=== PATIENT | female | born 1995 | race Hispanic/Latino ===

== ENCOUNTER 2022-02-28 21:54 | Inpatient (IN) | payer OTHER ==
[~2022-02-28] VITALS: Ht 167.6 cm; Wt 98.3 kg
[2022-02-28 22:23] LABS: HEMATOCRIT 41.4 % (36-48); MEAN CORPUSCULAR HEMOGLOBIN 30.7 pg (27.0-33.0); MEAN CORPUSCULAR HGB CONC 34.3 g/dL (32.0-36.0); MEAN CORPUSCULAR VOLUME 89.4 fL (79-99); PLATELET COUNT (AUTO) 262 K/uL (130-400); RED BLOOD CELL COUNT(AUTO) 4.63 MIL/uL (4.00-5.50); RED CELL DISTRIBUTION WIDTH 12.6 % (11.0-15.5); WHITE BLOOD COUNT (AUTO) 10.6 K/uL (4.8-10.8)
[2022-02-28 22:39] LABS: CREATININE 0.7 mg/dL (0.5-1.5); POTASSIUM 4.2 mmol/L (3.5-5.1)
[2022-02-28 22:44] LABS: ALBUMIN 4.3 g/dL (3.5-5.0); TOTAL PROTEIN, SERUM 8.7 g/dL (6.0-8.3)
[2022-02-28 22:46] LABS: APPEARANCE,URINE CLEAR (CLEAR); BILIRUBIN,URINE NEGATIVE (NEGATIVE); COLOR,URINE YELLOW (YELLOW); GLUCOSE, URINE (UA) NEGATIVE (NEGATIVE); KETONES,URINE 15 mg/dL (NEGATIVE); LEUKOCYTE ESTERASE ,URINE TRACE (NEGATIVE); NITRATE,URINE POSITIVE (NEGATIVE); OCCULT BLOOD,URINE NEGATIVE (NEGATIVE); PROTEIN,URINE NEGATIVE (NEGATIVE); UROBILINOGEN,URINE 0.2 mg/dL (0.2-1.0)
[2022-02-28 22:49] LABS: BASOPHILS % (AUTO) 0.2 % (0.0-5.0); EOSINOPHILS % (AUTO) 0.8 % (0.0-8.0); LYMPHOCYTES % (AUTO) 25.8 % (21.0-51.0); MONOCYTES % (AUTO) 6.4 % (3.0-13.0); NEUTROPHILS % (AUTO) 66.5 % (40.0-77.0)
[2022-02-28 22:56] LABS: HCG,QUALITATIVE URINE NEGATIVE (NEGATIVE)
[2022-02-28 23:27] LABS: BACTERIA,URINE Moderate /HPF (None Seen); RBC,URINE None Seen /HPF (0-1); SQUAMOUS EPITHELIAL CELL,UR Many /HPF (0-2)
[2022-02-28 23:35] LABS: AMPHET/METH SCREEN,URINE NEGATIVE (NEGATIVE); BARBITURATE SCREEN, URINE NEGATIVE (NEGATIVE); BENZODIAZEPINES SCREEN,URINE NEGATIVE (NEGATIVE); CANNABINOID SCREEN,URINE NEGATIVE (NEGATIVE); COCAINE SCREEN,URINE NEGATIVE (NEGATIVE); PHENCYCLIDINE SCREEN,URINE NEGATIVE (NEGATIVE)
[2022-03-01] MEDS ORDERED: IOHEXOL 350 MG/ML 100ML INFUS..BTL IV ONE (01:27)
[2022-03-01] MEDS ORDERED: LEVETIRACETAM 500 MG/5 ML SD VIAL IV SCH (03:00)
[2022-03-01] MEDS ORDERED: ONDANSETRON 4MG INJ IV PRN (06:30)
[2022-03-01] MEDS ORDERED: MAG/ALUM/SIMETH 30 ML UDCUP PO PRN (06:30)
[2022-03-01] MEDS ORDERED: GUAIFENESIN-DM 200/20 MG 10 ML PO PRN (06:30)
[2022-03-01] MEDS ORDERED: ACETAMINOPHEN WITH CODEINE 1 TAB TAB PO PRN (06:30)
[2022-03-01] MEDS ORDERED: DIPHENHYDRAMINE HCL 25 MG CAPSULE PO PRN (06:30)
[2022-03-01] MEDS ORDERED: ACETAMINOPHEN 325 MG TAB PO PRN (06:30)
[2022-03-01] MEDS ORDERED: NITROGLYCERIN 0.4 MG SL TAB SL PRN (06:30)
[2022-03-01] MEDS ORDERED: LACTULOSE 20 GM/30 ML UDCUP PO PRN (06:30)
[2022-03-01 06:43] LABS: HEMOGLOBIN A1C 5.1 % (4.0-6.0)
[2022-03-01] MEDS: CEFTRIAXONE 1G VIAL IVP SCH (06:58)
[2022-03-01] MEDS ORDERED: COMPOUND IV MISC 1 EACH IVSOLN MISC PRN (07:00)
[2022-03-01 08:16] LABS: THYROID STIMULATING HORMONE 0.01 uIU/mL (0.36-3.74)
[2022-03-01] MEDS: ASPIRIN 81MG CHEW TAB PO SCH (09:10)
[2022-03-01] MEDS: FAMOTIDINE 20MG VIAL IV SCH ×2 (09:10→19:55)
[2022-03-01] MEDS: LEVETIRACETAM 500 MG in 0.9%NACL 100ML 100 ML IV SCH (09:10)
[2022-03-01 15:57] VITALS: BP 102/66
[2022-03-01 20:00] VITALS: BP 94/58
[2022-03-02] VITALS: BP 104/58
[2022-03-02 04:00] VITALS: BP 103/59
[2022-03-02] MEDS: CEFTRIAXONE 1G VIAL IVP SCH (05:35)
[2022-03-02 07:38] VITALS: BP 102/67
[2022-03-02] MEDS: ASPIRIN 81MG CHEW TAB PO SCH (08:35)
[2022-03-02] MEDS: FAMOTIDINE 20MG VIAL IV SCH (08:35)
[2022-03-02] MEDS: LEVETIRACETAM 500 MG in 0.9%NACL 100ML 100 ML IV SCH (08:37)
[2022-03-02 08:53] LABS: HEMATOCRIT 40.4 % (36-48); MEAN CORPUSCULAR HEMOGLOBIN 30.3 pg (27.0-33.0); MEAN CORPUSCULAR HGB CONC 34.2 g/dL (32.0-36.0); MEAN CORPUSCULAR VOLUME 88.8 fL (79-99); RED BLOOD CELL COUNT(AUTO) 4.55 MIL/uL (4.00-5.50); RED CELL DISTRIBUTION WIDTH 12.6 % (11.0-15.5); WHITE BLOOD COUNT (AUTO) 7.3 K/uL (4.8-10.8)
[2022-03-02 09:01] LABS: CREATININE 0.9 mg/dL (0.5-1.5); POTASSIUM 3.7 mmol/L (3.5-5.1)
[2022-03-02 11:21] VITALS: BP 102/70
[2022-03-02] MEDS ORDERED: LEVE-43 PO (14:40)
[2022-03-02 15:38] VITALS: BP 104/67
[2022-03-02] MEDS ORDERED: LEVETIRACETAM 500 MG in 0.9%NACL 100ML 100 ML IV SCH (21:00)
== END 2022-03-02 19:45 | disposition home or self-care (01) | DRG 101 ==
LOC: EDH 21:54 → EDBD 21:55 → EDHIP 21:55 → 4CH 03-01 14:45
PROVIDERS: ADMIT Internal Medicine; ATTEND Internal Medicine
DX: R56.9 Unspecified convulsions (principal); N39.0 Urinary tract infection, site not specified; E66.9 Obesity, unspecified; Z68.35 Body mass index [BMI] 35.0-35.9, adult
CPT/HCPCS: 36415; 70470; 70544; 70547; 70551; 80048; 80053; 80061; 80305; 81001; 81025; 82140; 82607; 83036; 83605; 84145; 84443; 85025; 85027; 87088; 92522; 92610; 93306; 93356; 96374; G0378; J0696; J1953; J3490; Q9967

== ENCOUNTER 2022-03-21 22:07 | Emergency (ER) | payer OTHER ==
[~2022-03-21 22:07] MED LIST: LEVE-43 PO
[2022-03-21 22:51] LABS: BASOPHILS % (AUTO) 0.2 % (0.0-5.0); EOSINOPHILS % (AUTO) 1.1 % (0.0-8.0); HEMATOCRIT 39.5 % (36-48); LYMPHOCYTES % (AUTO) 23.1 % (21.0-51.0); MEAN CORPUSCULAR HEMOGLOBIN 30.4 pg (27.0-33.0); MEAN CORPUSCULAR HGB CONC 34.4 g/dL (32.0-36.0); MEAN CORPUSCULAR VOLUME 88.4 fL (79-99); MONOCYTES % (AUTO) 6.9 % (3.0-13.0); NEUTROPHILS % (AUTO) 68.2 % (40.0-77.0); PLATELET COUNT (AUTO) 244 K/uL (130-400); RED BLOOD CELL COUNT(AUTO) 4.47 MIL/uL (4.00-5.50); RED CELL DISTRIBUTION WIDTH 12.5 % (11.0-15.5); WHITE BLOOD COUNT (AUTO) 8.5 K/uL (4.8-10.8)
[2022-03-21] MEDS ORDERED: KETOROLAC 15MG/ML VIAL (15MG/ML) IV ONE (23:00)
[2022-03-21] MEDS ORDERED: 0.9%NACL 1000ML 1,000 ML IV ONE (23:00)
[2022-03-21] MEDS ORDERED: DiphenhydrAMINE HCL 50 MG/ML VIAL IV ONE (23:00)
[2022-03-21] MEDS ORDERED: PROCHLORPERAZINE 10MG/2ML INJ IV ONE (23:00)
[2022-03-21 23:05] LABS: CREATININE 0.8 mg/dL (0.5-1.5); POTASSIUM 3.5 mmol/L (3.5-5.1)
[2022-03-21 23:10] LABS: ALBUMIN 3.7 g/dL (3.5-5.0); TOTAL PROTEIN, SERUM 7.6 g/dL (6.0-8.3)
[2022-03-21 23:28] LABS: APPEARANCE,URINE CLEAR (CLEAR); BILIRUBIN,URINE NEGATIVE (NEGATIVE); COLOR,URINE YELLOW (YELLOW); GLUCOSE, URINE (UA) NEGATIVE (NEGATIVE); KETONES,URINE NEGATIVE (NEGATIVE); LEUKOCYTE ESTERASE ,URINE NEGATIVE Leu/uL (NEGATIVE); NITRATE,URINE NEGATIVE (NEGATIVE); OCCULT BLOOD,URINE NEGATIVE (NEGATIVE); PH,URINE 5.5 (5.0-8.0); PROTEIN,URINE 20 mg/dL (NEGATIVE); UROBILINOGEN,URINE 0.2 mg/dL (0.2-1.0)
[2022-03-21 23:42] LABS: HCG,QUALITATIVE URINE NEGATIVE (NEGATIVE); MUCUS,URINE FEW LPF (None Seen); SQUAMOUS EPITHELIAL CELL,UR MOD /HPF (0-2)
[2022-03-21 23:43] LABS: BACTERIA,URINE None Seen /HPF (None Seen)
[2022-03-22 00:25] VITALS: BP 128/53
== END 2022-03-22 00:28 | disposition home or self-care (01) ==
LOC: EDH 22:07
DX: R51.9 Headache, unspecified (principal); Z79.899 Other long term (current) drug therapy
CPT/HCPCS: 99284; 96374; 96375; 96361; 80053; 85025; 81001; 81025; 36415; 80177; J1200; J7030; J0780; J1885

== ENCOUNTER 2022-04-02 23:58 | Emergency (ER) | payer SELFPAY ==
[~2022-04-02] VITALS: Ht 172.7 cm; Wt 81.6 kg
[2022-04-03] MEDS ORDERED: ACETAMINOPHEN 500 MG TABLET ONE (00:16)
[2022-04-03 00:28] LABS: APPEARANCE,URINE CLEAR (CLEAR); BILIRUBIN,URINE NEGATIVE (NEGATIVE); COLOR,URINE LIGHT-YELLOW (YELLOW); GLUCOSE, URINE (UA) NEGATIVE (NEGATIVE); KETONES,URINE 10 mg/dL (NEGATIVE); LEUKOCYTE ESTERASE ,URINE 75 Leu/uL (NEGATIVE); NITRATE,URINE NEGATIVE (NEGATIVE); OCCULT BLOOD,URINE NEGATIVE (NEGATIVE); PROTEIN,URINE 20 mg/dL (NEGATIVE); UROBILINOGEN,URINE 0.2 mg/dL (0.2-1.0)
[2022-04-03] MEDS ORDERED: ACETAMINOPHEN 500 MG TABLET PO ONE (00:30)
[2022-04-03 00:36] LABS: MUCUS,URINE RARE LPF (None Seen)
[2022-04-03 00:42] LABS: CREATININE 0.9 mg/dL (0.5-1.5); POTASSIUM 3.5 mmol/L (3.5-5.1)
[2022-04-03 00:52] LABS: BASOPHILS % (AUTO) 0.3 % (0.0-5.0); EOSINOPHILS % (AUTO) 0.7 % (0.0-8.0); HEMATOCRIT 35.6 % (36-48); MEAN CORPUSCULAR HEMOGLOBIN 31.1 pg (27.0-33.0); MEAN CORPUSCULAR HGB CONC 35.4 g/dL (32.0-36.0); MEAN CORPUSCULAR VOLUME 87.9 fL (79-99); MONOCYTES % (AUTO) 5.5 % (3.0-13.0); NEUTROPHILS % (AUTO) 72.9 % (40.0-77.0); PLATELET COUNT (AUTO) 268 K/uL (130-400); RED BLOOD CELL COUNT(AUTO) 4.05 MIL/uL (4.00-5.50); RED CELL DISTRIBUTION WIDTH 12.5 % (11.0-15.5); WHITE BLOOD COUNT (AUTO) 11.7 K/uL (4.8-10.8)
[2022-04-03] MEDS ORDERED: MACR100 PO (01:43)
[2022-04-03 01:44] VITALS: BP 107/63
[2022-04-03] MEDS ORDERED: NITROFURANTOIN MONOHYD/M-CRYST 100 MG CAPSULE PO ONE (02:00)
== END 2022-04-03 01:56 | disposition home or self-care (01) ==
LOC: EDBD 23:58 → EDH 23:58
DX: N39.0 Urinary tract infection, site not specified (principal); R56.9 Unspecified convulsions
CPT/HCPCS: 36415; 70450; 80048; 80177; 81001; 84702; 85025; 87088

== ENCOUNTER 2022-04-06 23:52 | Emergency (ER) | payer OTHER ==
[~2022-04-06] VITALS: Ht 162.6 cm; Wt 95.3 kg
[~2022-04-06 23:52] MED LIST changes: +MACR100 PO
[2022-04-07 00:19] LABS: BASOPHILS % (AUTO) 0.2 % (0.0-5.0); EOSINOPHILS % (AUTO) 0.7 % (0.0-8.0); HEMATOCRIT 38.7 % (36-48); MEAN CORPUSCULAR HGB CONC 34.9 g/dL (32.0-36.0); MONOCYTES % (AUTO) 6.2 % (3.0-13.0); NEUTROPHILS % (AUTO) 73.5 % (40.0-77.0); PLATELET COUNT (AUTO) 270 K/uL (130-400); RED CELL DISTRIBUTION WIDTH 12.4 % (11.0-15.5); WHITE BLOOD COUNT (AUTO) 10.9 K/uL (4.8-10.8)
[2022-04-07 00:21] LABS: APPEARANCE,URINE CLOUDY (CLEAR); BILIRUBIN,URINE NEGATIVE (NEGATIVE); COLOR,URINE YELLOW (YELLOW); GLUCOSE, URINE (UA) NEGATIVE (NEGATIVE); KETONES,URINE NEGATIVE (NEGATIVE); LEUKOCYTE ESTERASE ,URINE 75 Leu/uL (NEGATIVE); NITRATE,URINE NEGATIVE (NEGATIVE); PROTEIN,URINE 10 mg/dL (NEGATIVE); UROBILINOGEN,URINE 0.2 mg/dL (0.2-1.0)
[2022-04-07 00:23] LABS: HCG,QUALITATIVE URINE POSITIVE (NEGATIVE)
[2022-04-07 00:25] LABS: AMPHET/METH SCREEN,URINE NEGATIVE (NEGATIVE); BACTERIA,URINE RARE /HPF (None Seen); BARBITURATE SCREEN, URINE NEGATIVE (NEGATIVE); BENZODIAZEPINES SCREEN,URINE NEGATIVE (NEGATIVE); CANNABINOID SCREEN,URINE NEGATIVE (NEGATIVE); COCAINE SCREEN,URINE NEGATIVE (NEGATIVE); MUCUS,URINE RARE LPF (None Seen); PHENCYCLIDINE SCREEN,URINE NEGATIVE (NEGATIVE); SQUAMOUS EPITHELIAL CELL,UR MANY /HPF (0-2)
[2022-04-07 00:32] LABS: CARBON DIOXIDE 25 mmol/L (21-32); CHLORIDE 99 mmol/L (101-111); CREATININE 0.7 mg/dL (0.5-1.5); GLOMERULAR FILTR. RATE CALC 107 mL/min (>60); GLUCOSE,RANDOM 130 mg/dL (70-105); POTASSIUM 3.6 mmol/L (3.5-5.1); SODIUM SERUM 134 mmol/L (136-145); UREA NITROGEN, BLOOD 14 mg/dL (7-18)
[2022-04-07 00:36] LABS: ALANINE AMINOTRANSFERASE 20 U/L (12-78); ALBUMIN 3.9 g/dL (3.5-5.0); ALCOHOL, BLOOD < 3 mg/dL (0-10); ASPARTATE AMINOTRANSFERASE 14 U/L (10-37); TOTAL PROTEIN, SERUM 8.4 g/dL (6.0-8.3)
[2022-04-07 00:42] LABS: ACETAMINOPHEN < 1 mcg/mL (10-30); SALICYLATE < 2.8 mg/dL (2.8-20.0)
[2022-04-07 04:51] VITALS: BP 118/64
== END 2022-04-07 06:58 | disposition home or self-care (01) ==
LOC: EDH 23:52
DX: R45.851 Suicidal ideations (principal); F32.A Depression, unspecified; Z20.822 Contact with and (suspected) exposure to COVID-19
CPT/HCPCS: 99285; 87635; 80053; 80305; 84702; 85025; 87088; 81025; 36415 ×2; 81001; G0481; C9803

== ENCOUNTER 2022-11-02 23:35 | Inpatient (IN) | payer OTHER ==
[~2022-11-02] VITALS: Ht 160 cm; Wt 95.3 kg
[2022-11-03 00:02] LABS: BASOPHILS % (AUTO) 0.2 % (0.0-5.0); EOSINOPHILS % (AUTO) 0.7 % (0.0-8.0); HEMATOCRIT 33.8 % (36-48); MEAN CORPUSCULAR HEMOGLOBIN 31.1 pg (27.0-33.0); MEAN CORPUSCULAR HGB CONC 33.7 g/dL (32.0-36.0); MEAN CORPUSCULAR VOLUME 92.3 fL (79-99); NEUTROPHILS % (AUTO) 72.7 % (40.0-77.0); PLATELET COUNT (AUTO) 211 K/uL (130-400); RED BLOOD CELL COUNT(AUTO) 3.66 MIL/uL (4.00-5.50); RED CELL DISTRIBUTION WIDTH 12.4 % (11.0-15.5); WHITE BLOOD COUNT (AUTO) 9.1 K/uL (4.8-10.8)
[2022-11-03 00:17] LABS: APPEARANCE,URINE CLOUDY (CLEAR); BILIRUBIN,URINE 0.5 mg/dL (NEGATIVE); COLOR,URINE YELLOW (YELLOW); GLUCOSE, URINE (UA) NEGATIVE (NEGATIVE); KETONES,URINE 150 mg/dL (NEGATIVE); LEUKOCYTE ESTERASE ,URINE 500 Leu/uL (NEGATIVE); NITRATE,URINE NEGATIVE (NEGATIVE); OCCULT BLOOD,URINE NEGATIVE (NEGATIVE); PH,URINE 6.5 (5.0-8.0); PROTEIN,URINE 30 mg/dL (NEGATIVE); UROBILINOGEN,URINE 6 mg/dL (0.2-1.0)
[2022-11-03 00:20] LABS: CARBON DIOXIDE 27 mmol/L (21-32); CHLORIDE 103 mmol/L (101-111); CREATININE 0.7 mg/dL (0.5-1.5); GLOMERULAR FILTR. RATE CALC 121 mL/min (>90); GLUCOSE,RANDOM 69 mg/dL (70-105); POTASSIUM 3.4 mmol/L (3.5-5.1); SODIUM SERUM 139 mmol/L (136-145); UREA NITROGEN, BLOOD 6 mg/dL (7-18)
[2022-11-03 00:37] LABS: MUCUS,URINE FEW LPF (None Seen); SQUAMOUS EPITHELIAL CELL,UR MANY /HPF (0-2); WBC,URINE 51-100 /HPF (0-1)
[2022-11-03 00:41] LABS: HCG,QUALITATIVE URINE POSITIVE (NEGATIVE)
[2022-11-03 00:45] LABS: ALANINE AMINOTRANSFERASE 317 U/L (12-78); ALBUMIN 2.5 g/dL (3.5-5.0); ASPARTATE AMINOTRANSFERASE 155 U/L (10-37); CREATINE KINASE, TOTAL 37 U/L (21-232); HCG,QUANTITATIVE 36257 mIU/mL (0-5); TOTAL PROTEIN, SERUM 6.8 g/dL (6.0-8.3)
[2022-11-03 00:46] LABS: ACETAMINOPHEN < 1 mcg/mL (10-30); SALICYLATE < 2.8 mg/dL (2.8-20.0)
[2022-11-03 02:22] LABS: INR 0.93 (0.85-1.15); PROTHROMBIN TIME 9.5 SEC (9.6-11.6)
[2022-11-03 02:24] LABS: PARTIAL THROMBOPLASTIN TIME 24.8 SEC (26.3-35.5)
[2022-11-03] MEDS ORDERED: NOREPINEPHRIN 4MG/NS 250ML 250 ML IV SCH (02:30)
[2022-11-03] MEDS ORDERED: ONDANSETRON 4MG INJ IV PRN (02:30)
[2022-11-03] MEDS ORDERED: 0.9%NACL 1000ML 2,500 ML IV ONE (02:30)
[2022-11-03] MEDS ORDERED: LACTULOSE 20 GM/30 ML UDCUP PO PRN (02:30)
[2022-11-03] MEDS ORDERED: ACETAMINOPHEN 325 MG TAB PO PRN ×2 (02:30)
[2022-11-03 02:35] LABS: AMPHET/METH SCREEN,URINE NEGATIVE (NEGATIVE); BARBITURATE SCREEN, URINE NEGATIVE (NEGATIVE); BENZODIAZEPINES SCREEN,URINE NEGATIVE (NEGATIVE); CANNABINOID SCREEN,URINE NEGATIVE (NEGATIVE); COCAINE SCREEN,URINE NEGATIVE (NEGATIVE); OPIATE SCREEN,URINE NEGATIVE (NEGATIVE); PHENCYCLIDINE SCREEN,URINE NEGATIVE (NEGATIVE)
[2022-11-03] MEDS: 0.9%NACL 1000ML 1,000 ML IV SCH ×2 (04:46→12:18)
[2022-11-03] MEDS: CEFTRIAXONE 1G VIAL IVPB SCH (04:46)
[2022-11-03] MEDS ORDERED: MAGNESIUM 2GM PREMIX 50ML 50 ML IV PRN (08:30)
[2022-11-03] MEDS ORDERED: POTASSIUM CHLORIDE 10% ELIXIR 20 MEQ/15 ML UDCUP PO PRN (08:30)
[2022-11-03] MEDS ORDERED: POTASSIUM CHLORIDE 20MEQ/100ML 100 ML IV PRN (08:30)
[2022-11-03] MEDS ORDERED: KCL 20 MEQ ERTAB PO PRN (08:30)
[2022-11-03 08:51] LABS: HEMATOCRIT 30.5 % (36-48); MEAN CORPUSCULAR HEMOGLOBIN 31.6 pg (27.0-33.0); MEAN CORPUSCULAR HGB CONC 34.1 g/dL (32.0-36.0); MEAN CORPUSCULAR VOLUME 92.7 fL (79-99); RED BLOOD CELL COUNT(AUTO) 3.29 MIL/uL (4.00-5.50); RED CELL DISTRIBUTION WIDTH 12.7 % (11.0-15.5); WHITE BLOOD COUNT (AUTO) 6.6 K/uL (4.8-10.8)
[2022-11-03] MEDS: FAMOTIDINE 20MG TAB PO SCH ×2 (08:55→21:53)
[2022-11-03] MEDS: LEVETIRACETAM 500 MG TABLET PO SCH ×2 (08:55→21:53)
[2022-11-03 08:59] LABS: CREATININE 0.5 mg/dL (0.5-1.5); POTASSIUM 4.1 mmol/L (3.5-5.1)
[2022-11-03 09:03] LABS: MAGNESIUM 1.7 mg/dL (1.80-2.40); TOTAL PROTEIN, SERUM 5.8 g/dL (6.0-8.3)
[2022-11-03 17:25] VITALS: BP 106/69
[2022-11-03] MEDS ORDERED: PREN1TAB80 PO (18:58)
[2022-11-03 19:05] VITALS: BP 91/64
[2022-11-03 23:20] VITALS: BP 92/54
[2022-11-04] MEDS: 0.9%NACL 1000ML 1,000 ML IV SCH ×3 (00:45→20:50)
[2022-11-04 03:05] VITALS: BP 96/71
[2022-11-04] MEDS: CEFTRIAXONE 1G VIAL IVPB SCH (03:30)
[2022-11-04 06:45] LABS: HEMATOCRIT 31.5 % (36-48); MEAN CORPUSCULAR VOLUME 93.8 fL (79-99); RED BLOOD CELL COUNT(AUTO) 3.36 MIL/uL (4.00-5.50); RED CELL DISTRIBUTION WIDTH 12.5 % (11.0-15.5); WHITE BLOOD COUNT (AUTO) 6.4 K/uL (4.8-10.8)
[2022-11-04 07:01] LABS: ALBUMIN 2.1 g/dL (3.5-5.0); CREATININE 0.5 mg/dL (0.5-1.5); POTASSIUM 4.2 mmol/L (3.5-5.1)
[2022-11-04 07:44] VITALS: BP 96/61
[2022-11-04] MEDS: LEVETIRACETAM 500 MG TABLET PO SCH ×2 (08:16→20:37)
[2022-11-04] MEDS: FAMOTIDINE 20MG TAB PO SCH ×2 (08:16→20:37)
[2022-11-04 11:30] VITALS: BP 107/64
[2022-11-04 15:30] VITALS: BP 89/57
[2022-11-04 19:30] VITALS: BP 93/57
[2022-11-04 23:00] VITALS: BP 96/58
[2022-11-05] VITALS (7 sets, daily range): BP systolic 85–106; BP diastolic 53–76
[2022-11-05] MEDS: CEFTRIAXONE 1G VIAL IVPB SCH (04:08)
[2022-11-05] MEDS: 0.9%NACL 1000ML 1,000 ML IV SCH ×2 (06:32→15:56)
[2022-11-05 06:50] LABS: HEMATOCRIT 29.5 % (36-48); MEAN CORPUSCULAR HGB CONC 33.9 g/dL (32.0-36.0); MEAN CORPUSCULAR VOLUME 91.3 fL (79-99); RED BLOOD CELL COUNT(AUTO) 3.23 MIL/uL (4.00-5.50); RED CELL DISTRIBUTION WIDTH 12.3 % (11.0-15.5); WHITE BLOOD COUNT (AUTO) 5.4 K/uL (4.8-10.8)
[2022-11-05 07:03] LABS: % IRON SATURATION 26.7 % (22-44)
[2022-11-05 07:05] LABS: CREATININE 0.5 mg/dL (0.5-1.5); MAGNESIUM 1.7 mg/dL (1.80-2.40); POTASSIUM 3.5 mmol/L (3.5-5.1); TOTAL PROTEIN, SERUM 5.5 g/dL (6.0-8.3)
[2022-11-05] MEDS: PRENATAL VITAMIN RX TABLET PO SCH (08:36)
[2022-11-05] MEDS: FAMOTIDINE 20MG TAB PO SCH ×2 (08:36→21:23)
[2022-11-05] MEDS: GUAIFENESIN-DM 200/20 MG 10 ML PO PRN ×3 (08:36→23:13)
[2022-11-05] MEDS: LEVETIRACETAM 500 MG TABLET PO SCH ×2 (08:37→21:23)
[2022-11-06] MEDS: 0.9%NACL 1000ML 1,000 ML IV SCH ×2 (01:50→12:08)
[2022-11-06] MEDS: CEFTRIAXONE 1G VIAL IVPB SCH (03:27)
[2022-11-06 03:30] VITALS: BP 96/64
[2022-11-06] MEDS: GUAIFENESIN-DM 200/20 MG 10 ML PO PRN ×2 (06:27→13:28)
[2022-11-06 07:30] VITALS: BP 108/63
[2022-11-06] MEDS: LEVETIRACETAM 500 MG TABLET PO SCH (08:20)
[2022-11-06] MEDS: PRENATAL VITAMIN RX TABLET PO SCH (08:20)
[2022-11-06] MEDS: FAMOTIDINE 20MG TAB PO SCH (08:20)
[2022-11-06 11:22] VITALS: BP 88/61
[2022-11-06 16:00] VITALS: BP 94/55
[2022-11-06] MEDS ORDERED: LEVE500T19 PO (16:59)
[2022-11-06] MEDS ORDERED: HYDR-3421 PO (17:00)
== END 2022-11-06 17:40 | disposition home or self-care (01) | DRG 833 ==
LOC: EDH 23:35 → EDHIP 23:36 → WSH 11-03 17:15
PROVIDERS: ADMIT Hospitalist; ATTEND Hospitalist
DX: O23.43 Unspecified infection of urinary tract in pregnancy, third trimester (principal); O25.13 Malnutrition in pregnancy, third trimester; Z20.822 Contact with and (suspected) exposure to COVID-19; O99.343 Other mental disorders complicating pregnancy, third trimester; O99.013 Anemia complicating pregnancy, third trimester; O99.213 Obesity complicating pregnancy, third trimester; Z3A.34 34 weeks gestation of pregnancy
CPT/HCPCS: 36415; 76805; 80053; 80177; 80305; 81001; 81025; 82550; 83540; 83550; 83605; 83735; 84484; 84702; 85025; 85027; 85610; 85730; 87040; 87088; 87635; 93005; C9803; G0378; G0481; J0696; J3475; J7030

== ENCOUNTER 2023-02-13 20:36 | Emergency (ER) | payer OTHER ==
[~2023-02-13] VITALS: Ht 170.2 cm; Wt 87.5 kg
[~2023-02-13 20:36] MED LIST changes: +HYDR-3421 PO; -LEVE-43 PO; +LEVE500T19 PO; -MACR100 PO; +PREN1TAB80 PO
[2023-02-13 21:46] LABS: BASOPHILS # (AUTO) 0.01 K/uL (0.00-0.20); BASOPHILS % (AUTO) 0.1 % (0.0-5.0); EOSINOPHILS # (AUTO) 0.07 K/uL (0.00-0.70); EOSINOPHILS % (AUTO) 0.9 % (0.0-8.0); HEMATOCRIT 37.1 % (36-48); IMMATURE GRANULOCYTE ABSOLUTE 0.03 K/uL (0-1); LYMPHOCYTES # (AUTO) 1.8 K/uL (1.0-4.8); LYMPHOCYTES % (AUTO) 24.2 % (21.0-51.0); MEAN CORPUSCULAR HEMOGLOBIN 28.6 pg (27.0-33.0); MEAN CORPUSCULAR HGB CONC 33.2 g/dL (32.0-36.0); MEAN CORPUSCULAR VOLUME 86.3 fL (79-99); MONOCYTES # (AUTO) 0.4 K/uL (0.1-1.0); MONOCYTES % (AUTO) 5.5 % (3.0-13.0); NEUTROPHILS # (AUTO) 5.1 K/uL (1.8-7.7); NEUTROPHILS % (AUTO) 68.9 % (40.0-77.0); PLATELET COUNT (AUTO) 266 K/uL (130-400); RED CELL DISTRIBUTION WIDTH 12.6 % (11.0-15.5); WHITE BLOOD COUNT (AUTO) 7.5 K/uL (4.8-10.8)
[2023-02-13] MEDS ORDERED: CHARCOAL/SORBITOL 50 GM/240 ML SUSP PO SCH ×2 (22:00→23:00)
[2023-02-13 22:02] LABS: CARBON DIOXIDE 26 mmol/L (21-32); CHLORIDE 105 mmol/L (101-111); CREATININE 0.7 mg/dL (0.5-1.5); GLOMERULAR FILTR. RATE CALC 121 mL/min (>90); GLUCOSE,RANDOM 110 mg/dL (70-105); SODIUM SERUM 141 mmol/L (136-145); UREA NITROGEN, BLOOD 14 mg/dL (7-18)
[2023-02-13 22:06] LABS: ALANINE AMINOTRANSFERASE 29 U/L (12-78); ALBUMIN 3.8 g/dL (3.5-5.0); ALCOHOL, BLOOD < 3 mg/dL (0-10); ASPARTATE AMINOTRANSFERASE 21 U/L (10-37); BILIRUBIN,TOTAL 0.3 mg/dL (0.2-1.0); CREATINE KINASE, TOTAL 263 U/L (21-232); TOTAL PROTEIN, SERUM 7.8 g/dL (6.0-8.3)
[2023-02-13 22:07] LABS: ACETAMINOPHEN < 1 mcg/mL (10-30); SALICYLATE < 2.8 mg/dL (2.8-20.0)
[2023-02-13 22:19] LABS: SARS-CoV-2, RNA, NAAT NEGATIVE SARS CoV-2 (NEGATIVE)
[2023-02-13 22:50] LABS: APPEARANCE,URINE CLOUDY (CLEAR); BILIRUBIN,URINE NEGATIVE (NEGATIVE); COLOR,URINE LIGHT-YELLOW (YELLOW); GLUCOSE, URINE (UA) NEGATIVE (NEGATIVE); KETONES,URINE NEGATIVE (NEGATIVE); LEUKOCYTE ESTERASE ,URINE 250 Leu/uL (NEGATIVE); NITRATE,URINE NEGATIVE (NEGATIVE); OCCULT BLOOD,URINE NEGATIVE (NEGATIVE); PROTEIN,URINE NEGATIVE (NEGATIVE); UROBILINOGEN,URINE 0.2 mg/dL (0.2-1.0)
[2023-02-13 22:52] LABS: ADD UA MICROSCOPIC YES
[2023-02-13 22:57] LABS: AMPHET/METH SCREEN,URINE NEGATIVE (NEGATIVE); BARBITURATE SCREEN, URINE NEGATIVE (NEGATIVE); BENZODIAZEPINES SCREEN,URINE NEGATIVE (NEGATIVE); CANNABINOID SCREEN,URINE NEGATIVE (NEGATIVE); COCAINE SCREEN,URINE NEGATIVE (NEGATIVE); OPIATE SCREEN,URINE NEGATIVE (NEGATIVE); PHENCYCLIDINE SCREEN,URINE NEGATIVE (NEGATIVE)
[2023-02-13 23:04] LABS: MUCUS,URINE RARE LPF (None Seen); SQUAMOUS EPITHELIAL CELL,UR MANY /HPF (0-2)
[2023-02-14] MEDS ORDERED: PENICILLIN G BENZATHINE LA 1.2 MILUNITS/2 ML SYG IM ONE (02:30)
[2023-02-14 06:25] VITALS: BP 97/69; PULSE 58; RESP 18; O2SAT 99
== END 2023-02-14 08:22 ==
LOC: EDH 20:36
DX: T42.6X1A Poisoning by other antiepileptic and sedative-hypnotic drugs, accidental (unintentional), initial encounter (principal); F41.9 Anxiety disorder, unspecified; F32.A Depression, unspecified; Z79.899 Other long term (current) drug therapy; Z20.822 Contact with and (suspected) exposure to COVID-19; Y92.89 Other specified places as the place of occurrence of the external cause
CPT/HCPCS: 99285; 87635; 82550; 80053; 80305; 84703; 85025; 87088; 36415; 93005; 80177; 81001; 96372; C9803; J0561; G0481

== ENCOUNTER 2023-03-26 18:30 | Emergency (ER) | payer OTHER ==
[~2023-03-26] VITALS: Ht 167.6 cm; Wt 72.6 kg
[2023-03-26] MEDS ORDERED: 0.9%NACL 1000ML 1,000 ML IV SCH (20:30)
[2023-03-26 20:35] LABS: BASOPHILS # (AUTO) 0.01 K/uL (0.00-0.20); BASOPHILS % (AUTO) 0.1 % (0.0-5.0); EOSINOPHILS # (AUTO) 0.05 K/uL (0.00-0.70); EOSINOPHILS % (AUTO) 0.7 % (0.0-8.0); HEMATOCRIT 39.5 % (36-48); IMMATURE GRANULOCYTE ABSOLUTE 0.02 K/uL (0-1); LYMPHOCYTES # (AUTO) 1.9 K/uL (1.0-4.8); LYMPHOCYTES % (AUTO) 26.7 % (21.0-51.0); MEAN CORPUSCULAR HEMOGLOBIN 29.3 pg (27.0-33.0); MEAN CORPUSCULAR HGB CONC 33.4 g/dL (32.0-36.0); MEAN CORPUSCULAR VOLUME 87.6 fL (79-99); MONOCYTES # (AUTO) 0.5 K/uL (0.1-1.0); MONOCYTES % (AUTO) 7.7 % (3.0-13.0); NEUTROPHILS # (AUTO) 4.5 K/uL (1.8-7.7); NEUTROPHILS % (AUTO) 64.5 % (40.0-77.0); PLATELET COUNT (AUTO) 280 K/uL (130-400); RED BLOOD CELL COUNT(AUTO) 4.51 MIL/uL (4.00-5.50); RED CELL DISTRIBUTION WIDTH 12.9 % (11.0-15.5)
[2023-03-26 20:41] LABS: APPEARANCE,URINE CLEAR (CLEAR); BILIRUBIN,URINE NEGATIVE (NEGATIVE); COLOR,URINE YELLOW (YELLOW); GLUCOSE, URINE (UA) NEGATIVE (NEGATIVE); KETONES,URINE 10 mg/dL (NEGATIVE); LEUKOCYTE ESTERASE ,URINE 25 Leu/uL (NEGATIVE); NITRATE,URINE NEGATIVE (NEGATIVE); OCCULT BLOOD,URINE NEGATIVE (NEGATIVE); PROTEIN,URINE 10 mg/dL (NEGATIVE); UROBILINOGEN,URINE 0.2 mg/dL (0.2-1.0)
[2023-03-26 20:42] LABS: CREATININE 0.7 mg/dL (0.5-1.5); POTASSIUM 3.5 mmol/L (3.5-5.1)
[2023-03-26 20:46] LABS: ADD UA MICROSCOPIC YES
[2023-03-26 20:49] LABS: ALBUMIN 4.1 g/dL (3.5-5.0); BILIRUBIN,TOTAL 0.5 mg/dL (0.2-1.0); TOTAL PROTEIN, SERUM 7.8 g/dL (6.0-8.3)
[2023-03-26 20:51] LABS: INFLUENZA TYPE A Negative For Type A (NEGATIVE); INFLUENZA TYPE B Negative For Type B (NEGATIVE)
[2023-03-26 20:55] LABS: SARS-CoV-2, RNA, NAAT POSITIVE SARS CoV-2 (NEGATIVE)
[2023-03-26 21:02] LABS: BACTERIA,URINE RARE /HPF (None Seen); MUCUS,URINE FEW LPF (None Seen); RBC,URINE 0-1 /HPF (0-1); SQUAMOUS EPITHELIAL CELL,UR MOD /HPF (0-2)
[2023-03-26] MEDS ORDERED: IBUP-1493 PO (21:24)
[2023-03-26] MEDS ORDERED: PRED20TA3 PO (21:24)
[2023-03-26 21:30] VITALS: BP 121/54; PULSE 74; RESP 18; O2SAT 98
[2023-03-26 22:02] LABS: AMPHET/METH SCREEN,URINE NEGATIVE (NEGATIVE); BARBITURATE SCREEN, URINE NEGATIVE (NEGATIVE); BENZODIAZEPINES SCREEN,URINE NEGATIVE (NEGATIVE); CANNABINOID SCREEN,URINE NEGATIVE (NEGATIVE); COCAINE SCREEN,URINE NEGATIVE (NEGATIVE); OPIATE SCREEN,URINE NEGATIVE (NEGATIVE); PHENCYCLIDINE SCREEN,URINE NEGATIVE (NEGATIVE)
== END 2023-03-26 21:43 | disposition home or self-care (01) ==
LOC: EDH 18:30
DX: U07.1 COVID-19 (principal); I10 Essential (primary) hypertension; F41.9 Anxiety disorder, unspecified; F32.A Depression, unspecified; Z79.899 Other long term (current) drug therapy
CPT/HCPCS: 99284; 70450; 71045; 87635; 82550; 80053; 80305; 85025; 87804 ×2; 36415; 72125; 70486; 81001; C9803

== ENCOUNTER 2023-05-23 08:37 | Emergency (ER) | payer OTHER ==
[~2023-05-23] VITALS: Ht 160 cm; Wt 86.2 kg
[~2023-05-23 08:37] MED LIST changes: +IBUP-1493 PO; +PRED20TA3 PO
[2023-05-23 08:38] VITALS: BP 118/73; PULSE 77; RESP 18
[2023-05-23] MEDS ORDERED: SOLU-MEDROL 125MG VIAL IM ONE (09:30)
[2023-05-23] MEDS ORDERED: HYDR25CA PO (10:21)
[2023-05-23] MEDS ORDERED: METH4TAB3 PO (10:21)
== END 2023-05-23 10:32 | disposition home or self-care (01) ==
LOC: EDH 08:37
DX: M79.605 Pain in left leg (principal); M79.604 Pain in right leg; M79.641 Pain in right hand; M79.642 Pain in left hand; M79.18 Myalgia, other site; F41.9 Anxiety disorder, unspecified; R56.9 Unspecified convulsions; Z79.899 Other long term (current) drug therapy; Z98.890 Other specified postprocedural states
CPT/HCPCS: 99283; 96372; J2930

== ENCOUNTER 2023-09-20 20:29 | Emergency (ER) | payer OTHER ==
[~2023-09-20 20:29] MED LIST changes: +HYDR25CA PO; +METH4TAB3 PO
[2023-09-20 21:00] LABS: APPEARANCE,URINE CLEAR (CLEAR); BILIRUBIN,URINE NEGATIVE (NEGATIVE); COLOR,URINE LIGHT-YELLOW (YELLOW); GLUCOSE, URINE (UA) NEGATIVE (NEGATIVE); KETONES,URINE NEGATIVE (NEGATIVE); LEUKOCYTE ESTERASE ,URINE NEGATIVE Leu/uL (NEGATIVE); NITRATE,URINE NEGATIVE (NEGATIVE); OCCULT BLOOD,URINE NEGATIVE (NEGATIVE); PH,URINE 6.5 (5.0-8.0); PROTEIN,URINE NEGATIVE (NEGATIVE); UROBILINOGEN,URINE 0.2 mg/dL (0.2-1.0)
[2023-09-20 21:01] LABS: HCG,QUALITATIVE URINE NEGATIVE (NEGATIVE)
[2023-09-20 21:02] LABS: ADD UA MICROSCOPIC NO
[2023-09-20 21:39] LABS: BASOPHILS # (AUTO) 0.02 K/uL (0.00-0.20); BASOPHILS % (AUTO) 0.2 % (0.0-5.0); EOSINOPHILS # (AUTO) 0.11 K/uL (0.00-0.70); EOSINOPHILS % (AUTO) 1.3 % (0.0-8.0); HEMATOCRIT 39.5 % (36-48); IMMATURE GRANULOCYTE ABSOLUTE 0.02 K/uL (0-1); LYMPHOCYTES # (AUTO) 2.7 K/uL (1.0-4.8); LYMPHOCYTES % (AUTO) 30.3 % (21.0-51.0); MEAN CORPUSCULAR HEMOGLOBIN 29.9 pg (27.0-33.0); MEAN CORPUSCULAR HGB CONC 33.7 g/dL (32.0-36.0); MEAN CORPUSCULAR VOLUME 88.8 fL (79-99); MONOCYTES # (AUTO) 0.5 K/uL (0.1-1.0); MONOCYTES % (AUTO) 5.3 % (3.0-13.0); NEUTROPHILS # (AUTO) 5.5 K/uL (1.8-7.7); NEUTROPHILS % (AUTO) 62.7 % (40.0-77.0); PLATELET COUNT (AUTO) 252 K/uL (130-400); RED BLOOD CELL COUNT(AUTO) 4.45 MIL/uL (4.00-5.50); RED CELL DISTRIBUTION WIDTH 12.7 % (11.0-15.5); WHITE BLOOD COUNT (AUTO) 8.8 K/uL (4.8-10.8)
[2023-09-20 21:49] LABS: CREATININE 0.7 mg/dL (0.5-1.5); POTASSIUM 3.7 mmol/L (3.5-5.1)
[2023-09-20 21:54] LABS: ALBUMIN 3.5 g/dL (3.5-5.0); BILIRUBIN,TOTAL 0.2 mg/dL (0.2-1.0); TOTAL PROTEIN, SERUM 7.5 g/dL (6.0-8.3)
[2023-09-20] MEDS ORDERED: OMEP40CA21 PO (22:04)
[2023-09-20] MEDS: DICYCLOMINE HCL 10 MG/5 ML ML PO ONE (22:25)
[2023-09-20] MEDS: MAG/ALUM/SIMETH 30 ML UDCUP PO ONE (22:26)
[2023-09-20] MEDS: LIDOCAINE HCL 2% VISCOUS 15 ML UDCUP PO ONE (22:26)
[2023-09-20 22:32] VITALS: BP 136/84; PULSE 68; RESP 16; O2SAT 99
== END 2023-09-20 22:32 | disposition home or self-care (01) ==
LOC: EDH 20:29
DX: K29.00 Acute gastritis without bleeding (principal); Z79.899 Other long term (current) drug therapy; Z98.890 Other specified postprocedural states
CPT/HCPCS: 36415; 80053; 81003; 81025; 83690; 85025

== ENCOUNTER 2023-11-08 22:54 | Emergency (ER) | payer MEDICAID, OTHER ==
[~2023-11-08] VITALS: Ht 157.5 cm; Wt 59.0 kg
[~2023-11-08 22:54] MED LIST changes: +OMEP40CA21 PO
[2023-11-08] MEDS: CHARCOAL/AQUA 25GM/120ML PO ONE (23:00)
[2023-11-08 23:33] LABS: BASOPHILS # (AUTO) 0.02 K/uL (0.00-0.20); BASOPHILS % (AUTO) 0.2 % (0.0-5.0); EOSINOPHILS # (AUTO) 0.21 K/uL (0.00-0.70); EOSINOPHILS % (AUTO) 2.2 % (0.0-8.0); HEMATOCRIT 36.3 % (36-48); IMMATURE GRANULOCYTE ABSOLUTE 0.04 K/uL (0-1); LYMPHOCYTES # (AUTO) 2.6 K/uL (1.0-4.8); LYMPHOCYTES % (AUTO) 26.7 % (21.0-51.0); MEAN CORPUSCULAR HEMOGLOBIN 29.3 pg (27.0-33.0); MEAN CORPUSCULAR HGB CONC 34.4 g/dL (32.0-36.0); MONOCYTES # (AUTO) 0.5 K/uL (0.1-1.0); MONOCYTES % (AUTO) 5.5 % (3.0-13.0); NEUTROPHILS # (AUTO) 6.2 K/uL (1.8-7.7); PLATELET COUNT (AUTO) 259 K/uL (130-400); RED BLOOD CELL COUNT(AUTO) 4.27 MIL/uL (4.00-5.50); RED CELL DISTRIBUTION WIDTH 12.9 % (11.0-15.5); WHITE BLOOD COUNT (AUTO) 9.6 K/uL (4.8-10.8)
[2023-11-08 23:43] LABS: CARBON DIOXIDE 25 mmol/L (21-32); CHLORIDE 102 mmol/L (101-111); CREATININE 0.5 mg/dL (0.5-1.0); GLOMERULAR FILTR. RATE CALC 131 mL/min (>90); GLUCOSE,RANDOM 108 mg/dL (70-105); POTASSIUM 3.5 mmol/L (3.5-5.1); SODIUM SERUM 137 mmol/L (136-145); UREA NITROGEN, BLOOD 10 mg/dL (7-18)
[2023-11-08 23:49] LABS: ALANINE AMINOTRANSFERASE 20 U/L (12-78); ALBUMIN 3.4 g/dL (3.5-5.0); ASPARTATE AMINOTRANSFERASE 13 U/L (10-37); BILIRUBIN,TOTAL 0.3 mg/dL (0.2-1.0); CREATINE KINASE, TOTAL 98 U/L (21-232); TOTAL PROTEIN, SERUM 7.6 g/dL (6.0-8.3)
[2023-11-08 23:56] LABS: ACETAMINOPHEN < 1 mcg/mL (10-30); ALCOHOL, BLOOD < 3 mg/dL (0-10); SALICYLATE < 2.8 mg/dL (2.8-20.0)
[2023-11-09 00:24] LABS: ADD UA MICROSCOPIC NO; APPEARANCE,URINE CLEAR (CLEAR); BILIRUBIN,URINE NEGATIVE (NEGATIVE); COLOR,URINE LIGHT-YELLOW (YELLOW); GLUCOSE, URINE (UA) NEGATIVE (NEGATIVE); KETONES,URINE NEGATIVE (NEGATIVE); LEUKOCYTE ESTERASE ,URINE NEGATIVE Leu/uL (NEGATIVE); NITRATE,URINE NEGATIVE (NEGATIVE); OCCULT BLOOD,URINE NEGATIVE (NEGATIVE); PROTEIN,URINE NEGATIVE (NEGATIVE); UROBILINOGEN,URINE 0.2 mg/dL (0.2-1.0)
[2023-11-09] MEDS: 0.9%NACL 1000ML 1,000 ML IV ONE (00:56)
[2023-11-09 02:07] LABS: ACETAMINOPHEN < 1 mcg/mL (10-30); SALICYLATE < 2.8 mg/dL (2.8-20.0)
[2023-11-09 05:16] LABS: AMPHET/METH SCREEN,URINE NEGATIVE (NEGATIVE); BARBITURATE SCREEN, URINE NEGATIVE (NEGATIVE); BENZODIAZEPINES SCREEN,URINE NEGATIVE (NEGATIVE); CANNABINOID SCREEN,URINE NEGATIVE (NEGATIVE); COCAINE SCREEN,URINE NEGATIVE (NEGATIVE); OPIATE SCREEN,URINE NEGATIVE (NEGATIVE); PHENCYCLIDINE SCREEN,URINE NEGATIVE (NEGATIVE)
[2023-11-09 08:58] VITALS: BP 126/78; PULSE 76; RESP 18; O2SAT 100
== END 2023-11-09 10:39 | disposition left against medical advice (07) ==
LOC: EDH 22:54
DX: T50.902A Poisoning by unspecified drugs, medicaments and biological substances, intentional self-harm, initial encounter (principal); R45.851 Suicidal ideations; F32.A Depression, unspecified; Z79.899 Other long term (current) drug therapy; Z98.890 Other specified postprocedural states; Y92.89 Other specified places as the place of occurrence of the external cause
CPT/HCPCS: 99285; 71045; 82550; 80053; 80305; 84703; 85025; 36415 ×2; 81003; 96361; 96360; 93005; G0480; G0481

== ENCOUNTER 2025-03-13 19:21 | Emergency (ER) | payer SELFPAY ==
[~2025-03-13] VITALS: Ht 162.6 cm; Wt 118.6 kg
--- NOTE | 2025-03-13 19:26 | NUR ---
UA CUP PROVIDED
--- NOTE | 2025-03-13 19:26 | NUR ---
REPORT TO RUPALI BRUNO
--- NOTE | 2025-03-13 20:42 | ERN ---
ED Note History of Present Illness Stated Complaint: HEADACHE Chief Complaint: Headache Time Seen by MD: 19:23 Time Seen by Midlevel: 19:25 Dictation: 30-year-old female coming in with complaints of generalized body aches, headache onset this morning. Patient states her [id number] gave her a pill in the goes under her tongue but does not know which one it is. Patient states she also has some nausea and vomiting, had two episodes of vomiting not bloody today. Denies having any fever, neck pain, diarrhea, chest pain or chest discomfort. Allergies: Coded Allergies: No Known Drug Allergies (Unverified Allergy, Unknown, 02/28/22) Home Meds Active Scripts Ondansetron (Ondansetron Odt) 4 Mg Tab.rapdis, 4 MG PO BID for 7 Days, #14 TAB Prov:CHIDI MICHAELS 03/13/25 Nitrofurantoin/Nitrofuran Mac (Macrobid) 100 Mg Cap, 1 CAP PO BID for 7 Days, #14 CAP 0 Refills Prov:CHIDI MICHAELS 03/13/25 Omeprazole (Omeprazole) 40 Mg Capsule.dr, 40 MG PO DAILY, #30 CAP Prov:CECILY MENDIOLA NP 09/20/23 Hydroxyzine Pamoate (Vistaril) 25 Mg Capsule, 25 MG PO TID for 2 Days, #6 CAP Prov:STERLING MURPHY MD 05/23/23 Methylprednisolone (Medrol) 4 Mg Tab.ds.pk, 4 MG PO AD for 6 Days, #1 PACK Prov:STERLING MURPHY MD 05/23/23 Ibuprofen (Motrin/Advil) 800 Mg Tab, 800 MG PO TID, #30 TAB Prov:DAMARIS SHEPHERD MD 03/26/23 Prednisone (Prednisone) 20 Mg Tablet, 1 TAB PO AD for 6 Days, #14 TAB 0 Refills TAKE 3 TAB BY MOUTH daily X3 DAYS, THEN TAKE 2 TAB BY MOUTH daily X2 DAYS, THEN TAKE 1 TAB BY MOUTH ONCE A DAY X1 DAY. Prov:DAMARIS SHEPHERD MD 03/26/23 Reported Medications Hydroxyzine HCl (Hydroxyzine HCl) 25 Mg Tablet, 25 MG PO TID for 30 Days, TAB 11/06/22 Levetiracetam (Levetiracetam) 500 Mg Tablet, 1500 MG PO BID for 30 Days, TAB 11/06/22 Vits W-Ca,Fe,FA(<1Mg) ( Vitamins) 1 Each Tablet, 1 EACH PO DAILY, TAB 11/03/22 Past Medical History Past Medical History: Depression, Seizure Additional Past Medical Hx: DENIES PMH Surgical History: None Surgical History Other: DENIES SX Family History: Negative Social History: Negative, Lives with family, Other History: Not Applicable LMP: Feb 26, 2025 : 5 Para: 4 Aborts: 0 Review of System Dictation Constitutional: Complaining of generalized body aches Eyes: Negative for injury, pain,redness, and discharge ENT: Negative for injury,pain or swelling Cardiovascular: Negative for chest pain, palpitations, and edema Respiratory: Negative for shortness of breath, cough, and wheezing, Abdomen/GI: Negative for abdominal pain, nausea, vomiting, diarrhea, and constipation Back: Negative for injury and pain : Negative for injury, bleeding and discharge MS/Extremity: Negative for injury and deformity Skin: Negative for rash, and discoloration Neuro: Complaining of a headache Psych: Negative for suicide ideation, homicidal ideation, and hallucinations Review of Systems: was completed Initial Vital Sign VS Vital Signs Date Time Temp Pulse Resp B/P (MAP) Pulse Ox O2 Delivery O2 Flow Rate FiO2 03/13/25 19:23 97.0 96 20 139/97 99 Room Air 03/13/25 22:14 0 21 Physical Exam Dictation General: awake, alert, NAD Head/Face: Normocephalic, atraumatic Eyes: PERRL, EOMI, vision at baseline ENT: oral cavity clear, TMs clear, no signs of infection Neck: Trachea midline, supple, no nuchal rigidity Cardiovascular: RRR, normal S1/S2, No MRGs, no JVD Respiratory: CTAB, no respiratory distress, No rales or wheezes Abdomen: Soft, non-tender, non-distended, normal bowel sounds, no guarding or rebound. Skin: Warm, dry, normal turgor, no rash MS/Extremity: Pulses equal, no cyanosis, neurovascular intact, FROM Neuro: COAx4, GCS 15, strength 5/5, CN 2-12 intact, normal cerebellar exam, normal gait, Psych: Normal behavior, mood, and affect normal Results (Laboratory/Radiology) Laboratory/Radiology Laboratory Tests Test 03/13/25 20:48 9/4/25 20:50 Urine Color YELLOW (YELLOW) Urine Appearance TURBID (CLEAR) Urine pH 6.0 (5.0-8.0) Urine Specific [place] 1.034 (1.001-1.031) Urine Protein 50 mg/dL (NEGATIVE) H Urine Glucose (UA) NEGATIVE mg/dL (NEGATIVE) Urine Ketones 5 mg/dL (NEGATIVE) H Urine Occult Blood +- (TRACE) (NEGATIVE) H Urine Nitrate NEGATIVE (NEGATIVE) Urine Bilirubin NEGATIVE mg/dL (NEGATIVE) Urine Urobilinogen 0.2 mg/dL (0.2-1.0) Urine Leukocyte Esterase 500 Gwendolyn/uL (NEGATIVE) H Urine RBC 26-50 /HPF (0-1) H Urine WBC TNTC /HPF (0-1) H Urine WBC Clumps (Auto) RARE /HPF (0-1) Urine Squamous Epithelial Cells MANY /HPF (0-2) Urine Bacteria None /HPF (None Seen) Influenza Type A Antigen Negative For Type A Influenza Type B Antigen Negative For Type B SARS-CoV-2, RNA, NAAT NEGATIVE SARS CoV-2 White Blood Count 8.5 K/uL (4.8-10.8) Red Blood Count 4.85 MIL/uL (4.00-5.50) Hemoglobin 14.0 g/dL (12.0-16.0) Hematocrit 41.2 % (36-48) Mean Corpuscular Volume 84.9 fL (79-99) Mean Corpuscular Hemoglobin 28.9 pg (27.0-33.0) Mean Corpuscular Hemoglobin Concent 34.0 g/dL (32.0-36.0) Red Cell Distribution Width 13.0 % (11.0-15.5) Platelet Count 267 K/uL (130-400) Mean Platelet Volume 11.6 fL (7.5-10.5) H Immature Granulocyte % (Auto) 0.2 % (0-1) Neutrophils (%) (Auto) 66.6 % (40.0-77.0) Lymphocytes (%) (Auto) 26.4 % (21.0-51.0) Monocytes (%) (Auto) 5.7 % (3.0-13.0) Eosinophils (%) (Auto) 0.7 % (0.0-8.0) Basophils (%) (Auto) 0.4 % (0.0-5.0) Neutrophils # (Auto) 5.7 K/uL (1.8-7.7) Lymphocytes # (Auto) 2.3 K/uL (1.0-4.8) Monocytes # (Auto) 0.5 K/uL (0.1-1.0) Eosinophils # (Auto) 0.06 K/uL (0.00-0.70) Basophils # (Auto) 0.03 K/uL (0.00-0.20) Absolute Immature Granulocyte (auto 0.02 K/uL (0-1) Nucleated Red Blood Cells 0.0 % (0.0-0.19) Sodium Level 138 mmol/L (136-145) Potassium Level 3.8 mmol/L (3.5-5.1) Chloride Level 103 mmol/L (101-111) Carbon Dioxide Level 28 mmol/L (21-32) Blood Urea Nitrogen 11 mg/dL (7-18) Creatinine 0.7 mg/dL (0.5-1.0) Glomerular Filtration Rate Calc 119 mL/min (>90) Random Glucose 112 mg/dL (70-105) H Total Calcium 9.0 mg/dL (8.5-10.1) Human Chorionic Gonadotropin, Quant 0 mIU/mL (0-5) ED Course ED Course Orders Procedure Category Date Status Time Cbc With Differential LAB 03/13/25 Complete 19:28 Basic Metabolic Panel LAB 03/13/25 Complete 19:28 Urinalysis Profile LAB 03/13/25 Complete 19:28 Hcg,Quantitative LAB 03/13/25 Complete 19:28 0.9%Nacl 1000ml (Ns PHA 03/13/25 In Process 1000ml) 19:29 Ondansetron 4mg Inj PHA 03/13/25 Complete (Zofran 4mg Inj) 19:29 Covid Rna Naat LAB 03/13/25 Complete 20:26 Influenza Type A & B, LAB 03/13/25 Complete Rapid 20:26 Culture Urine YANCI 03/13/25 In Process 21:03 Ceftriaxone 1g Vial PHA 03/13/25 Complete (Rocephine 1g Inj) 21:17 Levetiracetam 500 PHA 03/14/25 In Process Mg/5 Ml Sd V (Keppra 5 00:00 Ct Head/Brain W/O CT 03/13/25 Logged Contrast 22:48 Morphine 2mg Syg PHA 03/13/25 Complete (Morphine 2mg Syg) 23:00 Ondansetron 4mg Inj PHA 03/13/25 Complete (Zofran 4mg Inj) 23:00 Current Medications Medications (Trade) Dose Ordered Sig/Severo Route PRN Reason Start Time Stop Time Status Last Admin Dose Admin Ceftriaxone Sodium (ROCEphine 1G INJ) 1 gm ONCE STAT IVPB 03/13/25 21:17 03/13/25 21:20 DC 03/13/25 22:20 Levetiracetam 1000 mg/Sodium Chloride 100 ml @ 400 mls/hr Q8H IV 03/14/25 00:00 04/13/25 00:00 03/13/25 23:37 Morphine Sulfate (morPHINE 2MG SYG) 2 mg ONCE ONCE IVP 03/13/25 23:00 03/13/25 23:01 DC 03/13/25 23:10 Ondansetron HCl (zoFRAN 4MG INJ) 4 mg ONCE IVP 03/13/25 19:29 03/13/25 22:58 DC 03/13/25 22:21 Ondansetron HCl (zoFRAN 4MG INJ) 4 mg ONCE ONCE IVP 03/13/25 23:00 03/13/25 23:01 DC 03/13/25 23:12 Sodium Chloride 1,000 ml @ 100 mls/hr Q10H IV 03/13/25 19:29 04/12/25 19:28 03/13/25 22:21 Vital Signs Date Time Temp Pulse Resp B/P (MAP) Pulse Ox O2 Delivery O2 Flow Rate FiO2 03/13/25 22:14 97.2 71 18 134/91 97 Room Air* 0 21 03/13/25 19:23 97.0 96 20 139/97 99 Room Air Medical Decision Making MDM MDM: Differential diagnosis: Urinary tract infection, dehydration, electrolyte abnormality, There are no social concerns with this patient. Prescription drug management Prescriptions will include: Macrobid Medical management and examination interpretation discussions were had by me with other qualified healthcare professionals as indicated for the patient's care. The patient was signed out to me by DAMION Ramey at 2130. Patient was pending chemistries at this time. Patient had already been diagnosed with a urinary tract infection and was given1 g of ceftriaxone and IV fluids. When chemistries resulted I discharged the patient however prior to discharge the patient had a brief seizure lasting proximally4 seconds. This was witnessed by the nurse in the patient was slightly postictal for several minutes. Patient was placed in a room. Patient does report having a history of seizures and normally takes 500 mg of Keppra. She is not taking her 2nd dose today. The pat ient was given1 g of Keppra IV, 1 L of IV fluids, and a CT scan of the head was performed which appears to be normal. The patient was observed in the ER for several hours after the seizure and has remained seizure-free. We will discharged home with supportive management DX & DISP Disposition: Discharge Departure Impression: Primary Impression: Acute UTI (urinary tract infection) Condition: Stable Scripts Ondansetron (Ondansetron Odt) 4 Mg Tab.rapdis 4 MG PO BID for 7 Days, #14 TAB Prov: CHIDI MICHAELS 03/13/25 Nitrofurantoin/Nitrofuran Mac (Macrobid) 100 Mg Cap 1 CAP PO BID for 7 Days, #14 CAP 0 Refills Prov: CHIDI MICHAELS 03/13/25 Referrals: SELF,REFERRAL (PCP) I have reviewed the case, and I agree with, Diagnosis and Plan I performed the substantive portion of the visit. I have reviewed and personally made and approve the management plan that is documented in the note by myself or the MAURA. I acknowledge for responsibility for the patient's management plan. RUPALI RAMEY NP Mar 13, 2025 20:42 CHIDI MICHAELS Mar 13, 2025 22:03
--- NOTE | 2025-03-13 20:47 | NUR ---
COVID AND FLU SWABS COLLECTED AND SENT
--- NOTE | 2025-03-13 20:48 | NUR ---
UA COLLECTED AND SENT
[2025-03-13 20:58] LABS: APPEARANCE,URINE TURBID (CLEAR); GLUCOSE, URINE (UA) NEGATIVE (NEGATIVE); LEUKOCYTE ESTERASE ,URINE 500 Leu/uL (NEGATIVE); NITRATE,URINE NEGATIVE (NEGATIVE); OCCULT BLOOD,URINE +- (TRACE) (NEGATIVE)
[2025-03-13 21:02] LABS: ADD UA MICROSCOPIC YES
[2025-03-13 21:09] LABS: SQUAMOUS EPITHELIAL CELL,UR MANY /HPF (0-2); WBC CLUMP RARE /HPF (0-1)
[2025-03-13 21:10] LABS: SARS-CoV-2, RNA, NAAT NEGATIVE SARS CoV-2 (NEGATIVE)
[2025-03-13 21:14] LABS: IMMATURE GRANULOCYTE ABSOLUTE 0.02 K/uL (0-1); NUCLEATED RED BLOOD CELLS 0.0 % (0.0-0.19); PLATELET COUNT (AUTO) 267 K/uL (130-400); RED BLOOD CELL COUNT(AUTO) 4.85 MIL/uL (4.00-5.50); RED CELL DISTRIBUTION WIDTH 13.0 % (11.0-15.5); WHITE BLOOD COUNT (AUTO) 8.5 K/uL (4.8-10.8)
[2025-03-13 21:16] LABS: INFLUENZA TYPE A Negative For Type A (NEGATIVE); INFLUENZA TYPE B Negative For Type B (NEGATIVE)
[2025-03-13 21:23] LABS: CREATININE 0.7 mg/dL (0.5-1.0); GLOMERULAR FILTR. RATE CALC 119.0 mL/min (>90); GLUCOSE,RANDOM 112.0 mg/dL (70-105); SODIUM SERUM 138.0 mmol/L (136-145); UREA NITROGEN, BLOOD 11.0 mg/dL (7-18)
[2025-03-13 21:34] LABS: HCG,QUANTITATIVE 0.0 mIU/mL (0-5)
[2025-03-13] MEDS ORDERED: ONDA-243 PO (22:00)
[2025-03-13] MEDS ORDERED: MACR100 PO (22:00)
--- NOTE | 2025-03-13 22:13 | NUR ---
REPORT TO DESIREE DE SANTIAGO
[2025-03-13] MEDS: 0.9%NACL 1000ML 1,000 ML IV SCH (22:21)
--- NOTE | 2025-03-13 23:00 | NUR ---
ASSUMED PT CARE
--- NOTE | 2025-03-13 23:00 | NUR ---
PATIENT HAD AN EPISODE OF BLANK SEIZURE X 4 SECS IN FAST TRACK, NIL LOC POST ICTAL CONFUSION NOTED. PT PULLED HER IV OUT MOVED TO ROOM 1, HOOKED TO MONITOR AND O2 SUPPORT AT 2LPM\ CHIDI CAMPA AWARE- ORDERS MADE
[2025-03-13] MEDS: leveTIRACEtam 500 MG/5 ML SD V 1,000 MG in 0.9%NACL 100ML 100 ML IV SCH (23:37)
--- NOTE | 2025-03-14 01:35 | HMCIMG ---
EXAM: CT Head Without IV contrast. CLINICAL HISTORY: Seizure. TECHNIQUE: Axial computed tomography images of the head/brain without intravenous contrast. COMPARISON: Compared to the prior CT head dated March 26, 2023. FINDINGS: BRAIN: No evidence of acute hemorrhage. No mass lesion. No CT evidence for acute territorial infarct. No midline shift or extra-axial collections. Empty sella. VENTRICLES: No hydrocephalus. ORBITS: The orbits are unremarkable. SINUSES AND MASTOIDS: The paranasal sinuses and mastoid air cells are clear. BONES: No fracture. SOFT TISSUES: Unremarkable. IMPRESSION: No acute intracranial abnormality. Stable. No new finding. /[place]
[2025-03-14 01:56] VITALS: BP 125/65; PULSE 75; RESP 18; TEMP 98.2; O2SAT 99
== END 2025-03-14 01:57 | disposition home or self-care (01) ==
LOC: EDH 19:21
DX: N39.0 Urinary tract infection, site not specified (principal); Z20.822 Contact with and (suspected) exposure to COVID-19; Z79.1 Long term (current) use of non-steroidal anti-inflammatories (NSAID); Z79.899 Other long term (current) drug therapy
CPT/HCPCS: 99285; 96374; 96375; 70450; 87635; 80048; 84702; 85025; 87086; 87804 ×2; 81001; 36415; 96376; J2270; J7030; J0696; J2405 ×2; J1953

== ENCOUNTER 2025-03-30 11:44 | Emergency (ER) | payer SELFPAY ==
[~2025-03-30] VITALS: Ht 165.1 cm; Wt 118.4 kg
[~2025-03-30 11:44] MED LIST changes: +MACR100 PO; +ONDA-243 PO
[2025-03-30 12:06] LABS: IMMATURE GRANULOCYTE ABSOLUTE 0.02 K/uL (0-1); NUCLEATED RED BLOOD CELLS 0.0 % (0.0-0.19); PLATELET COUNT (AUTO) 310 K/uL (130-400); RED BLOOD CELL COUNT(AUTO) 5.08 MIL/uL (4.00-5.50); RED CELL DISTRIBUTION WIDTH 12.8 % (11.0-15.5); WHITE BLOOD COUNT (AUTO) 9.9 K/uL (4.8-10.8)
[2025-03-30 12:14] LABS: CREATININE 0.9 mg/dL (0.5-1.0); GLOMERULAR FILTR. RATE CALC 88.0 mL/min (>90); GLUCOSE,RANDOM 116.0 mg/dL (70-105); SODIUM SERUM 136.0 mmol/L (136-145); UREA NITROGEN, BLOOD 12.0 mg/dL (7-18)
[2025-03-30] MEDS: PROCHLORPERAZINE 10MG/2ML INJ IV ONE (12:41)
[2025-03-30] MEDS: 0.9%NACL 1000ML 1,000 ML IV ONE (12:41)
--- NOTE | 2025-03-30 13:04 | ERN ---
General Chief Complaint: Headache Stated Complaint: HEADACHE Time Seen by MD: 11:46 Source: patient History of Present Illness Initial Comments Is a 30-year-old female coming in complaining of a headache. Per patient this has been has been ongoing for several weeks. She states that the she attributes the headaches to her seizure medication. She was seen two weeks ago for the same thing CT of the head did not disclose acute findings. Allergies: Coded Allergies: No Known Drug Allergies (Unverified Allergy, Unknown, 02/28/22) Home Meds Active Scripts Ondansetron (Ondansetron Odt) 4 Mg Tab.rapdis, 4 MG PO BID for 7 Days, #14 TAB Prov:CHIDI MICHAELS 03/13/25 Nitrofurantoin/Nitrofuran Mac (Macrobid) 100 Mg Cap, 1 CAP PO BID for 7 Days, #14 CAP 0 Refills Prov:CHIDI MICHAELS 03/13/25 Omeprazole (Omeprazole) 40 Mg Capsule.dr, 40 MG PO DAILY, #30 CAP Prov:CECILY MENDIOLA NP 09/20/23 Hydroxyzine Pamoate (Vistaril) 25 Mg Capsule, 25 MG PO TID for 2 Days, #6 CAP Prov:STERLING MURPHY MD 05/23/23 Methylprednisolone (Medrol) 4 Mg Tab.ds.pk, 4 MG PO AD for 6 Days, #1 PACK Prov:STERLING MURPHY MD 05/23/23 Ibuprofen (Motrin/Advil) 800 Mg Tab, 800 MG PO TID, #30 TAB Prov:DAMARIS SHEPHERD MD 03/26/23 Prednisone (Prednisone) 20 Mg Tablet, 1 TAB PO AD for 6 Days, #14 TAB 0 Refills TAKE 3 TAB BY MOUTH daily X3 DAYS, THEN TAKE 2 TAB BY MOUTH daily X2 DAYS, THEN TAKE 1 TAB BY MOUTH ONCE A DAY X1 DAY. Prov:DAMARIS SHEPHERD MD 03/26/23 Reported Medications Hydroxyzine HCl (Hydroxyzine HCl) 25 Mg Tablet, 25 MG PO TID for 30 Days, TAB 11/06/22 Levetiracetam (Levetiracetam) 500 Mg Tablet, 1500 MG PO BID for 30 Days, TAB 11/06/22 Vits W-Ca,Fe,FA(<1Mg) ( Vitamins) 1 Each Tablet, 1 EACH PO DAILY, TAB 11/03/22 Past Medical History Past Medical History: Anxiety, Depression, Seizure Medical History Other: SEIZURES Past Surgical History: BTL Surgical History Other: DENIES SX Family History Family History: Negative Social History Social History: Negative, Lives with family, Other Female( History) History: Not Applicable : 5 Para: 4 Aborts: 0 ROS Dictation CONSTITUTIONAL: No chills, no fever, no weakness, no diaphoresis, no malaise. HEAD/FACE: No signs of trauma. EENT: No eye pain, no blurred vision, no tearing, no double vision, no ear pain, no ear discharge, no nose pain, no nasal congestion, no throat pain, no throat swelling, no mouth pain. RESPIRATORY: No cough, no orthopnea, no SOB, no stridor, no wheezing. CARDIOVASCULAR: No chest pain, no edema, no palpitations, no syncope. GASTROINTESTINAL/ABDOMINAL: No abdominal pain, no constipation, no diarrhea, no nausea, no vomiting. GENITOURINARY: No abnormal discharge, no dysuria, no frequent urination, no hematuria. No complaints of pain in the genitals. MUSCULOSKELETAL: No back pain, no gout, no joint pain, no joint swelling, no muscle pain, no muscle stiffness, no neck pain. INTEGUMENTARY: No change in color, no change in hair/nails, no dryness, no lesion, no lumps, no rash. NEUROLOGICAL/PSYCH: No anxiety, not depressed, no emotional problem, no headache, no numbness, no pre-existing deficit, no history of seizures, no tremors, no weakness. HEMATOLOGIC/LYMPHATIC: Not anemic, no history of blood clots, no apparent bleeding, no bruising, glands not swollen. All Systems Negative, Except as Noted. Physical Exam Physical Exam Dictation VITAL SIGNS: Reviewed. GENERAL APPEARANCE: Alert, oriented x3, no acute distress, obese. HEAD AND FACE: Non-traumatic. EYES: PERRL, pink conjunctivas, eyelid no trauma, anterior chamber clear. EARS: Pinnas intact and no signs of trauma or erythema. Ear canals clear and no discharge. TMs no erythema. NOSE: No discharge, no bleeding. OROPHARYNX: Mouth normal, teeth no caries, tongue pink. Pharynx clear, no erythema. Tonsils no exudates, no abscesses noted. Mucous membrane moist. NECK: Supple, non-tender, no thyromegaly, no masses, no JVD, no bruits. BREAST: Deferred. CHEST: No tenderness, no crepitus, no paradoxical movement, no retractions. LUNGS: Clear, well-ventilated, symmetric, no rales, no wheezing, no rhonchi, no stridor, good breath sounds bilaterally. HEART: Regular rate, regular rhythm, no murmur, no gallops. VASCULAR: No peripheral edema. ABDOMEN: Soft, positive bowel sounds, nondistended, no guarding, nontender, no rebound, no masses no hepatomegaly, no splenomegaly, no Mathews's sign, no hernias. RECTAL: Deferred. GENITAL: Deferred. NEUROLOGICAL: Normal speech, gross motor function intact, gross sensory function intact. MUSCULOSKELETAL: Neck nontender, full range of motion, back nontender, full range of motion. EXTREMITIES: Nontender, full range of motion. Bilateral trapezius muscle tenderness on palpation SKIN: Color pink, dry, no turgor, no rash, no lacerations, no abrasions, no contusions. LYMPHATICS: Deferred. Results Laboratory and Microbiology Lab and Micro Result Laboratory Tests Test 03/30/25 12:00 03/30/25 13:50 White Blood Count 9.9 K/uL (4.8-10.8) Red Blood Count 5.08 MIL/uL (4.00-5.50) Hemoglobin 15.0 g/dL (12.0-16.0) Hematocrit 43.9 % (36-48) Mean Corpuscular Volume 86.4 fL (79-99) Mean Corpuscular Hemoglobin 29.5 pg (27.0-33.0) Mean Corpuscular Hemoglobin Concent 34.2 g/dL (32.0-36.0) Red Cell Distribution Width 12.8 % (11.0-15.5) Platelet Count 310 K/uL (130-400) Mean Platelet Volume 10.8 fL (7.5-10.5) H Immature Granulocyte % (Auto) 0.2 % (0-1) Neutrophils (%) (Auto) 76.8 % (40.0-77.0) Lymphocytes (%) (Auto) 18.2 % (21.0-51.0) L Monocytes (%) (Auto) 4.2 % (3.0-13.0) Eosinophils (%) (Auto) 0.4 % (0.0-8.0) Basophils (%) (Auto) 0.2 % (0.0-5.0) Neutrophils # (Auto) 7.6 K/uL (1.8-7.7) Lymphocytes # (Auto) 1.8 K/uL (1.0-4.8) Monocytes # (Auto) 0.4 K/uL (0.1-1.0) Eosinophils # (Auto) 0.04 K/uL (0.00-0.70) Basophils # (Auto) 0.02 K/uL (0.00-0.20) Absolute Immature Granulocyte (auto 0.02 K/uL (0-1) Nucleated Red Blood Cells 0.0 % (0.0-0.19) Sodium Level 136 mmol/L (136-145) Potassium Level 4.9 mmol/L (3.5-5.1) Chloride Level 100 mmol/L (101-111) L Carbon Dioxide Level 32 mmol/L (21-32) Blood Urea Nitrogen 12 mg/dL (7-18) Creatinine 0.9 mg/dL (0.5-1.0) Glomerular Filtration Rate Calc 88 mL/min (>90) Random Glucose 116 mg/dL (70-105) H Total Calcium 9.5 mg/dL (8.5-10.1) Urine Color YELLOW (YELLOW) Urine Appearance CLOUDY (CLEAR) H Urine pH 6.5 (5.0-8.0) Urine Specific [place] 1.014 (1.001-1.031) Urine Protein NEGATIVE mg/dL (NEGATIVE) Urine Glucose (UA) NEGATIVE mg/dL (NEGATIVE) Urine Ketones NEGATIVE mg/dL (NEGATIVE) Urine Occult Blood NEGATIVE (NEGATIVE) Urine Nitrate NEGATIVE (NEGATIVE) Urine Bilirubin NEGATIVE mg/dL (NEGATIVE) Urine Urobilinogen 0.2 mg/dL (0.2-1.0) Urine Leukocyte Esterase 500 Gwendolyn/uL (NEGATIVE) H Urine RBC 6-10 /HPF (0-1) H Urine WBC 51-100 /HPF (0-1) H Urine Squamous Epithelial Cells MANY /HPF (0-2) Urine Bacteria RARE /HPF (None Seen) Urine Other Casts 3 /LPF (None Seen) Urine HCG, Qualitative NEGATIVE (NEGATIVE) Labs Reviewed?: Yes MDM MDM: Differential diagnosis: Tension headache, UTI, chronic headache, Rationale: Tests considered and ordered secondary to shared decision making include: Previous outside records reviewed: Old ER visits. Risk of complication and/or morbidity or mortality of patient management: None Medications-Per medication reconciliation Need for hospitalization: Patient does not meet criteria for hospitalization. Need for emergency major/minor surgery: No There are no social concerns with this patient. Patient is a 30-year-old female coming in complaining of a headache. Per mother patient has been having headaches for some time. Patient has been evaluated in the past but states that she still has been having headaches. CT was performed two weeks ago. Mother blames medication that she is currently taking on with the headaches. Laboratory workup performed disclose a urinary tract infection patient we will be discharged with oral antibiotics as well as medication for tension headaches. Also advised patient appropriate follow up with PCP for long-term management. ED Course Orders Procedure Category Date Status Time Cbc With Differential LAB 03/30/25 Complete 11:54 Basic Metabolic Panel LAB 03/30/25 Complete 11:54 Urinalysis LAB 03/30/25 Complete W/Microscopic 11:54 ,Urine Test LAB 03/30/25 Complete 11:54 0.9%Nacl 1000ml (Ns PHA 03/30/25 Complete 1000ml) 12:00 Prochlorperazine PHA 03/30/25 Complete 10mg/2ml Inj 12:00 Diphenhydramine Hcl PHA 03/30/25 Complete (Benadryl Inj) 12:00 Culture Urine YANCI 03/30/25 In Process 14:09 Drug Screen Urine LAB 03/30/25 In Process 14:22 Acetaminophen 500mg PHA 03/30/25 Complete Tab (Tylenol 500mg T 14:30 Current Medications Medications (Trade) Dose Ordered Sig/Severo Route PRN Reason Start Time Stop Time Status Last Admin Dose Admin Acetaminophen (TYLenol 500MG TAB) 1,000 mg ONCE ONCE PO 03/30/25 14:30 03/30/25 14:31 DC 03/30/25 14:39 Diphenhydramine HCl (BENAdryl INJ) 25 mg ONCE ONCE IV 03/30/25 12:00 03/30/25 12:01 DC 03/30/25 12:41 Prochlorperazine Edisylate (Compazine 10mg/ 2ml Inj) 10 mg ONCE ONCE IV 03/30/25 12:00 03/30/25 12:01 DC 03/30/25 12:41 Sodium Chloride 1,000 ml @ 0 mls/hr ONCE ONCE IV 03/30/25 12:00 03/30/25 12:01 DC 03/30/25 12:41 Vital Signs Date Time Temp Pulse Resp B/P (MAP) Pulse Ox O2 Delivery O2 Flow Rate FiO2 03/30/25 12:40 98.4 99 12 120/76 97 Room Air* 0 21 03/30/25 11:45 98.8 103 18 112/72 98 Room Air DX & DISP Disposition: Discharge Departure Impression: Primary Impression: Acute UTI (urinary tract infection) Additional Impressions: Anxiety, TENSION-TYPE HEADACHE, UNSPECIFIED, NOT INTRACTABLE, Muscle strain Condition: Stable Scripts Diclofenac Sodium (Voltaren Arthritis Pain) 1 % Gel..gram. 5 GM TP BID for 7 Days, #1 TUBE Prov: RAYMON TAMAYO MD 03/30/25 Cephalexin Monohydrate (Keflex) 500 Mg Cap 1 CAP PO TID for 10 Days, #30 CAP 0 Refills Prov: RAYMON TAMAYO MD 03/30/25 Additional Instructions: FOLLOW-UP WITH PRIMARY CARE PROVIDER IN 1 TO 2 DAYS. TAKE MEDICATIONS DIRECTED HERE IN THE EMERGENCY ROOM. OKAY TO CONTINUE HOME MEDICATIONS UNLESS OTHERWISE DISCUSSED DURING YOUR VISIT IN THE EMERGENCY ROOM TODAY. RETURN TO YOUR NEAREST EMERGENCY ROOM IF SYMPTOMS WORSEN OR IF THERE IS NO IMPROVEMENT. CALL 911 IF YOU NEED IMMEDIATE ASSISTANCE. TAKE TYLENOL [id number] NEEDED AND IF NO CONTRAINDICATIONS ARE PRESENT. INCREASE ORAL HYDRATION. A WOUND CULTURE OR URINE CULTURE WAS ORDERED HERE IN THE EMERGENCY ROOM DEPARTMENT PLEASE FOLLOW-UP WITH PRIMARY CARE PROVIDER AND ADVISE THEM TO GET REPORTS FROM OUR FACILITY. IF YOU HAD ANY RADHA WRAP/SPLINTS THAT WERE APPLIED HERE, PLEASE DO NOT REMOVE THEM UNTIL YOU SEE YOUR PRIMARY CARE OR SPECIALTY. Referrals: Referrals: SELF,REFERRAL (PCP) NHI SKELTON MD, LUIS A MD Time of Disposition: 15:17 RAYMON TAMAYO MD Mar 30, 2025 13:04
[2025-03-30 14:06] LABS: APPEARANCE,URINE CLOUDY (CLEAR); GLUCOSE, URINE (UA) NEGATIVE (NEGATIVE); LEUKOCYTE ESTERASE ,URINE 500 Leu/uL (NEGATIVE); NITRATE,URINE NEGATIVE (NEGATIVE); OCCULT BLOOD,URINE NEGATIVE (NEGATIVE)
[2025-03-30 14:08] LABS: HCG,QUALITATIVE URINE NEGATIVE (NEGATIVE)
[2025-03-30 14:10] LABS: OTHER CASTS, URINE 3 /LPF (None Seen); SQUAMOUS EPITHELIAL CELL,UR MANY /HPF (0-2)
[2025-03-30] MEDS ORDERED: DICL20GE TP (15:18)
[2025-03-30] MEDS ORDERED: CEPH500B PO (15:18)
[2025-03-30 15:22] LABS: AMPHET/METH SCREEN,URINE NEGATIVE (NEGATIVE); BARBITURATE SCREEN, URINE NEGATIVE (NEGATIVE); CANNABINOID SCREEN,URINE NEGATIVE (NEGATIVE); COCAINE SCREEN,URINE NEGATIVE (NEGATIVE)
[2025-03-30 15:41] VITALS: BP 109/82; PULSE 87; RESP 15; TEMP 98.3; O2SAT 99
--- NOTE | 2025-03-30 15:42 | NUR ---
dc patient was dc'd by dr ravindra trejo dc'd patients iv with cath still intact and applied 2x2 gauze with coban i explained to patient to follow up with pcp, provided info based on diagnosis, prescriptions and answered any follow up questions patient ambulate out of ed, no complications
== END 2025-03-30 15:45 | disposition home or self-care (01) ==
LOC: EDH 11:44
DX: N39.0 Urinary tract infection, site not specified (principal); F41.9 Anxiety disorder, unspecified; G44.209 Tension-type headache, unspecified, not intractable; M19.90 Unspecified osteoarthritis, unspecified site; Z79.1 Long term (current) use of non-steroidal anti-inflammatories (NSAID); Z79.899 Other long term (current) drug therapy; Z98.51 Tubal ligation status
CPT/HCPCS: 99284; 96374; 96361; 96375; 80048; 80305; 85025; 87086; 81001; 81025; 36415; J1200; J7030; J0780